=== PATIENT | male | born 1950 | race Caucasian/White ===

== ENCOUNTER 2021-03-11 13:37 | Emergency (ER) | payer OTHER, MEDICARE ==
[~2021-03-11] VITALS: Ht 172.7 cm; Wt 81.2 kg
[2021-03-11] MEDS ORDERED: ELIQUIS5 MG PO (13:53)
[2021-03-11] MEDS ORDERED: LISINOPRIL5 MG PO (13:54)
[2021-03-11] MEDS ORDERED: INVOKAMET 50-11 EACH PO (13:54)
[2021-03-11] MEDS ORDERED: GLYBURID-METFO1 EACH PO (13:54)
[2021-03-11] MEDS ORDERED: DOFETILIDE250 MCG PO (13:54)
[2021-03-11] MEDS ORDERED: ZETIA10 MG PO (13:54)
[2021-03-11] MEDS ORDERED: FOLIC ACID1 MG PO (13:54)
[2021-03-11] MEDS ORDERED: TOPROL XL50 MG (13:55)
[2021-03-11] MEDS ORDERED: PREGABALIN50 MG PO (13:55)
[2021-03-11] MEDS ORDERED: CRESTOR20 MG PO (13:55)
[2021-03-11] MEDS ORDERED: NITROSTAT0.4 M1 PO (13:55)
[2021-03-11] MEDS ORDERED: CEPHALEXIN500 MG PO (14:55)
[2021-03-11 15:04] VITALS: BP 121/70
== END 2021-03-11 15:04 | disposition home or self-care (01) ==
LOC: M.ERS 13:37
DX: S51.811A Laceration without foreign body of right forearm, initial encounter (principal); F17.210 Nicotine dependence, cigarettes, uncomplicated; Z79.899 Other long term (current) drug therapy; Z88.8 Allergy status to other drugs, medicaments and biological substances; W01.0XXA Fall on same level from slipping, tripping and stumbling without subsequent striking against object, initial encounter; Y93.89 Activity, other specified; Y92.89 Other specified places as the place of occurrence of the external cause; Y99.8 Other external cause status